=== PATIENT | male | born 1985 | race Caucasian/White ===

== ENCOUNTER 2017-03-22 00:44 | Emergency (ER) | payer BC, OTHER ==
[2017-03-22 01:01] VITALS: BP 116/86
--- NOTE | 2017-03-22 01:11 | EDM.PDOC ---
ED HPI GENERAL MEDICAL PROBLEM - General Chief Complaint: Genitourinary Problem Stated Complaint: TESTICLE PAIN Time Seen by Provider: 03/22/17 01:11 Source of Information: Reports: Patient History Limitations: Reports: No Limitations - History of Present Illness INITIAL COMMENTS - FREE TEXT/NARRATIVE: 31-year-old male presents to the ED due to intense left sided testicular pain tonight. Patient reports that he has had ongoing problems with diffuse lower abdominal discomfort left inguinal discomfort and pain in the left hemiscrotum for almost 6 months. Perhaps even longer. Most the time as a dull aching discomfort but over the last 2 weeks she's had increasing sharp stabbing and more intense pains in the left inguinal area and left hemiscrotum. He has had investigations carried out in the clinic last week with bilateral scrotal ultrasound as well as tests looking for inguinal hernia and apparently no abnormalities were identified. He reports that he has painful ejaculations another sign of prostatitis. He has not noticed any blood in the semen. Denies any recent trauma to the left testicle. States pain was bad enough tonight to make him nauseated. 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 Onset: Sudden (Onset of severe left testicular pain tonight.), Other (Has been having lower abdominal suprapubic pressure discomfort and left inguinal discomfort and left hemiscrotal discomfort for greater than 6 months. Worse over the last 10-14 days.) Duration: Chronic Location: Reports: Abdomen (Left inguinal area groin radiating to the left hemiscrotum) Quality: Reports: Ache, Dull, Sharp (Sharp and stabbing tonight but usually a dull aching discomfort.), Stabbing Severity: Moderate Improves with: Reports: None Worsens with: Reports: Movement (Deep breathing and holding his breath. Lifting pushing pulling and carrying.) Context: Denies: Activity, Exercise, Lifting, Sick Contact, Trauma, Other Associated Symptoms: Reports: Malaise. Denies: Confusion, Chest Pain, Cough, cough w sputum, Diaphoresis, Fever/Chills, Headaches, Loss of Appetite, Nausea/ Vomiting, Rash, Seizure, Shortness of Breath, Syncope, Weakness Treatments [employer]AD [employer]: Reports: Other (see below) Left Penis Pain Score (Numeric/FACES): 5 - Related Data Allergies Allergy/AdvReac Type Severity Reaction Status Date / Time No Known Allergies Allergy Verified 03/22/17 01:01 Home Meds: Home Meds Ciprofloxacin HCl [Cipro] 500 mg PO BID #28 tablet 03/22/17 [Rx] Diclofenac Sodium [Voltaren] 50 mg PO BIDMEALS #20 tab.ec 03/22/17 [Rx] Doxycycline [Vibramycin] 100 mg PO Q12HR #84 cap 03/22/17 [Rx] Past Medical History - Past Health History Medical/Surgical History: Denies Medical/Surgical History Social & Family History - Tobacco Use Smoking Status *Q: Current Every Day Smoker Years of Tobacco use: 16 Packs/Tins Daily: 1 - Alcohol Use Alcohol Use History: Yes Days Per Week of Alcohol Use: 7 - Recreational Drug Use Recreational Drug Use: No ED ROS GENERAL - Review of Systems Review Of Systems: See Below Constitutional: Reports: Malaise, Fatigue. Denies: Fever, Decreased Appetite, Weight Loss HEENT: Reports: No Symptoms Respiratory: Reports: No Symptoms Cardiovascular: Reports: No Symptoms Endocrine: Reports: No Symptoms GI/Abdominal: Reports: Abdominal Pain (Left inguinal abdominal pain. Recently checked out for hernia with no positive findings.) : Reports: Dysuria (Occasional mild dysuria.), Other (Left hemiscrotal pain off-and-on for the last several months worse the last 10-14 days. Reports up a occasional painful ejaculations.) Musculoskeletal: Reports: No Symptoms Skin: Reports: No Symptoms Neurological: Reports: No Symptoms Psychiatric: Reports: No Symptoms Hematologic/Lymphatic: Reports: No Symptoms Immunologic: Reports: No Symptoms ED EXAM, RENAL/ - Physical Exam Exam: See Below Exam Limited By: No Limitations General Appearance: Alert, WD/WN, Anxious, Mild Distress Respiratory/Chest: No Respiratory Distress, Lungs Clear, Normal Breath Sounds, No Accessory Muscle Use, Chest Non-Tender Cardiovascular: Normal Peripheral Pulses, Regular Rate, Rhythm, No Edema, No Gallop, No Murmur GI/Abdominal: Abnormal Bowel Sounds (Somewhat hyperactive bowel sounds.). No: Normal Bowel Sounds, Non-Tender, No Organomegaly, No Distention, No Mass, Pelvis Stable, Distended (Male) Exam: No Hernia, Scrotum Tenderness (L) (Particularly vas deferens is very tender to palpation. I could find no definitive tenderness of the true testicle or inferior or superior pole of the epididymis.). No: Suprapubic Fullness, Testicular Mass, Testicular Tenderness (L), Testicular Tenderness (R) Back Exam: Normal Inspection, Full Range of Motion. No: CVA Tenderness (L), CVA Tenderness (R) Extremities: Normal Inspection Neurological: Alert, Oriented, CN II-XII Intact, Normal Cognition, Normal Gait Course - Vital Signs Last Recorded V/S: Last Vital Signs Temp 36.5 C 03/22/17 00:50 Pulse 103 H 03/22/17 00:50 Resp 16 03/22/17 00:50 BP 116/86 03/22/17 00:50 Pulse Ox 99 03/22/17 00:50 - Orders/Labs/Meds Meds: Medications Discontinued Medications Generic Name Dose Route Start Last Admin Trade Name Freq PRN Reason Stop Dose Admin Doxycycline Hyclate 200 mg 03/22/17 01:28 03/22/17 01:34 Vibramycin PO 03/22/17 01:29 200 mg ONETIME ONE Administration Indomethacin 50 mg 03/22/17 01:28 03/22/17 01:35 Indocin PO 03/22/17 01:29 50 mg ONETIME ONE Administration Levofloxacin 500 mg 03/22/17 01:27 03/22/17 01:34 Levaquin PO 03/22/17 01:28 500 mg ONETIME ONE Administration - Radiology Interpretation Free Text/Narrative:: 31-year-old male presents to the ED because of acute exacerbation of left hemiscrotal pain particularly felt in his left testicle tonight. Patient reports that for several months he's been struggling with lower abdominal discomfort particularly in the left inguinal area radiating down to the left hemiscrotum. He states it's usually a dull achy discomfort but is appreciated various symptoms such as painful ejaculations and suprapubic pressure discomfort. Over the last 10-14 days he's developed increasing left inguinal pain and left hemiscrotal discomfort. He was seen in the clinic last week and apparently had bilateral scrotal ultrasound which proved to be negative for any problems as well as abdominal x-rays and investigations for inguinal hernia which were negative. Tonight he developed sharp stabbing pain in his left testicle and felt that it was elevated up into the left inguinal canal. On examination right hemiscrotum shows no tenderness swelling or abnormalities. Similarly in the left the testicle is normal there is no obvious epididymitis. The left as deferens was quite tender to palpation however. Invagination of the scrotum also proved to be quite tender without any inguinal adenopathy or hernias detected. History is strongly suggestive of a prostatitis that is been going on for a lengthy period of time i.e. chronic. Treated for this condition however. Therefore I will treat him with Levaquin 500 mg through the ED tonight since I don't have Cipro in the department. And doxycycline 200 mg be given in the ED as well. Given indomethacin 50 mg by mouth to relieve acute inflammation. Prescription will be written for Cipro 500 mg twice daily for [address] Vincent 100 mg twice daily for 6 weeks to try and eradicate prostatitis. Also Voltaren 50 mg will be used twice a day for the next 10 days to reduce some pain and inflammation. 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 This which should allow the antibodies to start to work. Advised it'll be at least 3 days before he can expect any significant improvement and usually 10 days before he has very little discomfort he will follow-up with his personal care physician if any further problem's occur. Departure - Departure Time of Disposition: 01:44 Disposition: Home, Self-Care 01 Condition: Fair Clinical Impression: Testicular pain, left, Prostatitis syndrome - Discharge Information Prescriptions: Doxycycline [Vibramycin] 100 mg PO Q12HR #84 cap Ciprofloxacin HCl [Cipro] 500 mg PO BID #28 tablet Diclofenac Sodium [Voltaren] 50 mg PO BIDMEALS #20 tab.ec Referrals: Bryce Hammonds MD [Primary Care Provider] - Forms: ED Department Discharge, ED Return to Work/School Form Additional Instructions: Evaluation the emergency room tonight in regards to increased left testicular pain as compared to the last several weeks or months. History suggests chronic low-grade pain and discomfort in the left groin rating down to the left scrotum for a long period of time. Worse symptoms over the last 10-14 days and in particularly tonight with sharp stabbing pain in the left testicle. Previous investigations have been completed with bilateral ultrasound of the testicles and check for hernia which was negative. On my examination both testicles are within normal limits but the left vas deferens is quite tender to touch indicating inflammation and suspected infection. The infection is almost always from the prostate gland where the vas deferens attaches to. In the prostate gland becomes more infected or inflamed it refers the pain down the vas deferens towards the testicle and sometimes will cause the testicle and surrounding tissues called the epididymis to become very infected and inflamed and swollen. Treatment is antibiotics for a prolonged period of time to clear up infection in the prostate gland. Treatment started in the ED tonight was Levaquin 500 milligrams and doxycycline 200 mg by mouth. Also indomethacin 50 mg was given by mouth to reduce inflammation and pain. Monitor alcohol intake over the next several weeks and keep it to a minimum if at all possible as alcohol intake is one of the major causes of prostate inflammation. Similarly hot spicy foods tend to inflame the prostate. 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 Expect gradual improvement in left-sided abdominal inguinal and testicular pain over the next 3 days and then up to 10 days before you feel closer to normal. Make sure you finish up all of the antibiotics as this infection tends to come back and often is much harder to treat secondary third time around due to antibiotic resistance. His Voltaren 50 mg twice daily for 10 days to reduce pain and inflammation in the prostate gland.
[2017-03-22] MEDS ORDERED: Levofloxacin 250 MG Tab PO ONE (01:27)
[2017-03-22] MEDS ORDERED: Doxycycline 100 MG Cap PO ONE (01:28)
[2017-03-22] MEDS ORDERED: Indomethacin 25 MG Cap PO ONE (01:28)
== END 2017-03-22 01:44 | disposition home or self-care (01) ==
LOC: JD.ED 00:44
DX: N41.9 Inflammatory disease of prostate, unspecified (principal); F17.210 Nicotine dependence, cigarettes, uncomplicated
CPT/HCPCS: 99283; A9270

== ENCOUNTER 2023-02-14 15:10 | Emergency (ER) | payer BC, OTHER ==
[2023-02-14] MEDS ORDERED: Sodium Chloride 0.9% 10 ML Syringe FLUSH PRN (15:21)
[2023-02-14 15:54] LABS: BASOPHILS ABSOLUTE AUTO 0.1 K/mm3 (0.0-0.2); BASOPHILS PERCENT AUTO 0.5 % (0.0-1.0); EOSINOPHILS ABSOLUTE AUTO 0.3 K/mm3 (0.0-0.4); EOSINOPHILS PERCENT AUTO 1.8 % (0.0-6.0); HEMATOCRIT 45.1 % (42.0-52.0); HEMOGLOBIN 15.5 gm/dl (14.0-18.0); IMMATURE GRAN ABSOLUTE AUTO 0.15 K/mm3 (0.00-0.05); IMMATURE GRAN PERCENT AUTO 1.1 % (0.0-0.4); LYMPHOCYTES PERCENT AUTO 14.6 % (24.0-44.0); MEAN CORPUSCULAR HEMOGLOBIN 32.3 pg (28.0-32.0); MEAN CORPUSCULAR HGB CONC 34.4 g/dl (32.0-36.0); MEAN PLATELET VOLUME 9.1 fl (9.4-12.4); MONOCYTES ABSOLUTE AUTO 0.7 K/mm3 (0.0-0.8); MONOCYTES PERCENT AUTO 5.3 % (0.0-8.0); NEUTROPHILS ABSOLUTE AUTO 10.5 K/mm3 (1.8-7.7); NEUTROPHILS PERCENT AUTO 76.7 % (41.0-71.0); PLATELET COUNT,PLT 214 K/mm3 (150-400); WHITE BLOOD CELL COUNT,WBC 13.67 K/mm3 (3.9-11.3)
[2023-02-14 16:13] LABS: A/G RATIO 1.2 (1-2); ALBUMIN 3.8 g/dl (3.4-5.0); ANION GAP 13.7 (5-15); BILIRUBIN TOTAL 0.3 mg/dL (0.2-1.0); BUN/CREATININE RATIO 12.2 (14-18); CALCIUM 8.7 mg/dL (8.5-10.1); CREATININE 0.9 mg/dL (0.7-1.3); EST CRCL DRUG DOSING (CG) 102.9 mL/min; MAGNESIUM 2.5 mg/dL (1.8-2.4); POTASSIUM,K 3.7 mEq/L (3.5-5.1); PROTEIN TOTAL,TP 6.9 g/dl (6.4-8.2)
[2023-02-14 17:01] LABS: APPEARANCE,URINE CLEAR (Clear); BILIRUBIN,URINE NEGATIVE (Negative); COLOR,URINE YELLOW (Yellow); GLUCOSE,URINE NEGATIVE (Negative); KETONES,URINE NEGATIVE (Negative); LEUKOCYTE ESTERASE,URINE NEGATIVE (Negative); NITRITE,URINE NEGATIVE (Negative); OCCULT BLOOD,URINE NEGATIVE (Negative); PROTEIN,URINE 2+ (Negative); UROBILINOGEN,URINE 0.2 (0.2-1.0)
[2023-02-14 17:08] LABS: BACTERIA,URINE MODERATE /hpf (FEW); MUCUS,URINE FEW /hpf (FEW); RBC,URINE 0-5 /hpf (0-5); SQUAMOUS EPITHELIAL CELLS,UR 0-5 /hpf (0-5); WBC,URINE 0-5 /hpf (0-5)
[2023-02-14 17:09] LABS: AMPHETAMINES SCREEN, URINE NEGATIVE (CUTOFF=500); BARBITURATE SCREEN,URINE NEGATIVE (CUTOFF=200); BENZODIAZEPINES SCREEN,URINE NEGATIVE (CUTOFF=150); BUPRENORPHINE SCREEN,URINE NEGATIVE (CUTOFF=10); METHADONE SCREEN, URINE NEGATIVE (CUT0FF=200); METHAMPHETAMINES SCREEN, URINE NEGATIVE (CUTOFF=500); OXYCODONE SCREEN,URINE NEGATIVE (CUT0FF=100); THC SCREEN,URINE 20 NG/ML NEGATIVE (CUTOFF=50)
[2023-02-14 19:49] VITALS: BP 128/76; PULSE 92
== END 2023-02-14 18:08 | disposition home or self-care (01) ==
LOC: JD.ED 15:10
DX: R55 Syncope and collapse (principal); F17.210 Nicotine dependence, cigarettes, uncomplicated
CPT/HCPCS: 36415; 71046; 71046-26; 80053; 80306; 80307; 81001; 83735; 85025; 93005; 99285; J3490